=== PATIENT | male | born 1960 | race Caucasian/White ===

== ENCOUNTER 2025-03-19 03:19 | Inpatient (IN) | payer MEDICARE, OTHER ==
[~2025-03-19] VITALS: Ht 185.4 cm; Wt 74.5 kg
[2025-03-19] VITALS (11 sets, daily range): BP systolic 96–98; BP diastolic 64; PULSE 76–142; RESP 20–32; TEMP 99.7–101.5; O2SAT 95–100
[2025-03-19] MEDS ORDERED: LORazepam 2 MG/ML VIAL ONE ×2 (04:15→04:24)
[2025-03-19 04:21] LABS: BASOPHILS % (AUTO) 0.3 % (0.0-2.0); EOSINOPHILS % (AUTO) 1.6 % (1.0-6.0); HEMATOCRIT 49.6 % (41-53); HEMOGLOBIN 16.9 g/dL (13.5-17.5); LYMPHOCYTES # (AUTO) 1.6 K/uL (1.0-4.8); LYMPHOCYTES % (AUTO) 7.4 % (22.0-44.0); MEAN CORPUSCULAR HEMOGLOBIN 29.7 pg (26.0-34.0); MEAN CORPUSCULAR HGB CONC 34.1 G/dL (31.0-37.0); MEAN CORPUSCULAR VOLUME 87 fL (80-100); MONOCYTES # (AUTO) 1.3 K/uL (0.1-1.0); NEUTROPHILS # (AUTO) 18.8 K/uL (1.8-7.7); NEUTROPHILS % (AUTO) 84.7 % (40.0-70.0); PLATELET COUNT (AUTO) 238 K/uL (150-450); RED BLOOD CELL COUNT(AUTO) 5.71 MIL/uL (4.50-5.90); RED CELL DISTRIBUTION WIDTH 13.9 % (11.5-14.5); WHITE BLOOD COUNT (AUTO) 22.1 K/uL (4.5-11.0)
[2025-03-19] MEDS ORDERED: ROCURONIUM BROMIDE 10 MG/ML 5 ML VIAL ONE ×2 (04:29→12:00)
[2025-03-19] MEDS ORDERED: PROPOFOL 1000 MG/ISO-OSM 100 ML ONE (04:29)
[2025-03-19 04:32] LABS: ANION GAP 12 mmol/L (8-16); CALCIUM, TOTAL 9.6 mg/dL (8.8-10.5); CARBON DIOXIDE 22 mmol/L (22-29); CHLORIDE 92 mmol/L (98-107); CREATININE 1.24 mg/dL (0.60-1.30); GLOMERULAR FILTR. RATE CALC 58 mL/min (>60); GLUCOSE,RANDOM 156 mg/dL (70-110); POTASSIUM 3.3 mmol/L (3.5-5.1); SODIUM SERUM 126 mmol/L (136-145); UREA NITROGEN, BLOOD 20 mg/dL (7-18)
[2025-03-19 04:36] LABS: ALANINE AMINOTRANSFERASE 20 U/L (12-78); ALBUMIN 4.1 g/dL (3.4-5.0); ALKALINE PHOSPHATASE 101 U/L (46-116); ASPARTATE AMINOTRANSFERASE 36 U/L (15-37); BILIRUBIN,TOTAL 2.5 mg/dL (0.1-1.0)
[2025-03-19 04:37] LABS: AMMONIA < 10 umol/L (11-32)
[2025-03-19 04:40] LABS: ALCOHOL, BLOOD (SERUM) < 3 mg/dL (0-10)
[2025-03-19 04:42] LABS: TROPONIN I-HIGH SENSITIVITY 142 ng/L (<76)
[2025-03-19] MEDS: LevETIRAcetam 3,000 MG in DEXTROSE 5%-WATER 250 ML IV ONE (04:55)
[2025-03-19] MEDS: SODIUM CHLORIDE 0.9% 1,000 ML IV ONE (04:55)
[2025-03-19] MEDS ORDERED: SODIUM CHLORIDE 0.9% 100 ML ONE (05:07)
[2025-03-19] MEDS ORDERED: IOHEXOL 350 MG/ML 100 ML VIAL ONE (05:07)
[2025-03-19] MEDS: LORazepam 2 MG/ML VIAL IVP ONE ×2 (05:12)
[2025-03-19] MEDS: PROPOFOL 1000 MG/ISO-OSM 100 ML IV PRN (05:15)
[2025-03-19] MEDS: POTASSIUM CHLORIDE 40 MEQ in SODIUM CHLORIDE 0.9% 1,000 ML IV ONE (05:25)
[2025-03-19] MEDS: MAGNESIUM SULFATE 2 GM/WATER 50 ML IV ONE (05:40)
[2025-03-19 06:25] LABS: APPEARANCE,URINE HAZY (CLEAR); COLOR,URINE YELLOW (YELLOW); GLUCOSE, URINE (UA) NEGATIVE (NEGATIVE); KETONES,URINE 40-60 mg/dL (NEGATIVE); LEUKOCYTE ESTERASE ,URINE NEGATIVE (NEGATIVE); NITRATE,URINE NEGATIVE (NEGATIVE); OCCULT BLOOD,URINE LARGE (NEGATIVE); PROTEIN,URINE >600,SEE CONFIRM mg/dL (NEGATIVE); SPECIFIC GRAVITIY, URINE 1.032 (1.003-1.030)
[2025-03-19 06:30] LABS: BILIRUBIN,URINE SMALL (NEGATIVE)
[2025-03-19 06:35] LABS: ALCOHOL, URINE DRUG SCREEN NEGATIVE (NEGATIVE); AMPHET/METH SCREEN,URINE NEGATIVE (NEGATIVE); BARBITURATE SCREEN, URINE NEGATIVE (NEGATIVE); BENZODIAZEPINES SCREEN,URINE NEGATIVE (NEGATIVE); CANNABINOID SCREEN,URINE POSITIVE (NEGATIVE); COCAINE SCREEN,URINE NEGATIVE (NEGATIVE); METHADONE SCREEN, URINE NEGATIVE (NEGATIVE); OPIATE SCREEN,URINE NEGATIVE (NEGATIVE); PHENCYCLIDINE SCREEN,URINE NEGATIVE (NEGATIVE)
[2025-03-19] MEDS: FentaNYL CIT 1000MCG/0.9% NACL 100 ML IV PRN (06:46)
[2025-03-19] MEDS: ACETAMINOPHEN 1000 MG/ISO-OSM 100 ML IV ONE (07:00)
[2025-03-19 07:06] LABS: BACTERIA,URINE Moderate /HPF (None Seen); SULFOSALICYLIC ACID,URINE 3+ (Negative); WBC,URINE None Seen /HPF (0-5)
[2025-03-19 07:07] LABS: HYALINE CASTS, URINE 0-2 /LPF (None Seen); RENAL EPITHELIAL CELLS,URINE Rare /LPF (None Seen)
[2025-03-19 07:11] LABS: ABG BASE EXCESS -5.9 mmol/L (-2.0-3.0); ABG CARBOXYHEMOGLOBIN 0.6 % (0.5-1.5); ABG HCO3 20.3 mmol/L (21.0-28.0); ABG METHEMOGLOBIN 0.9 % (0.0-1.5); ABG OXYGEN CONTENT 22.8 mL/dL (15.0-23.0); ABG OXYGEN SATURATION 98.7 % (94.0-98.0); ABG OXYHEMOGLOBIN 97.2 % (94.0-98.0); ABG PCO2 38 mmHg (32.0-48.0); ABG TOTAL HEMOGLOBIN 16.6 G/dL (13.5-17.5); ALLEN TEST, BLOOD GAS Positive; O2 DEVICE,BLOOD GAS VENTILATOR (ROOM AIR); PO2, ARTERIAL BG 130.5 mmHg (83.0-108.0); SITE, BLOOD GAS RT RADIAL; SOURCE, BLOOD GAS ARTERIAL; TEMPERATURE, FAHRENHEIT, BG 98.8 FAHREN (96.0-98.6); VT, ABG 450 ml
[2025-03-19 07:12] LABS: PEEP,BG 5 cm H2O
[2025-03-19] MEDS: NOREPINEPHRINE 8 MG/0.9 % NACL 250 ML IV PRN (08:47)
[2025-03-19] MEDS ORDERED: ZOLPIDEM TARTRATE 5 MG TABLET PO PRN (10:15)
[2025-03-19] MEDS ORDERED: ACETAMINOPHEN 325 MG TABLET PO PRN (10:15)
[2025-03-19] MEDS ORDERED: HYDROCODONE/ACETAMINOPHEN 5-325 MG TABLET PO PRN (10:15)
[2025-03-19] MEDS ORDERED: MORPHINE SULFATE 2 MG/ML SYRINGE IVP PRN (10:15)
[2025-03-19] MEDS ORDERED: ONDANSETRON HCL 4 MG/2 ML VIAL IVP PRN (10:15)
[2025-03-19] MEDS ORDERED: LORazepam 2 MG/ML VIAL IM PRN (10:15)
[2025-03-19] MEDS ORDERED: MAGNESIUM HYDROXIDE SUSPENSION 30 ML UDCUP PO PRN (10:15)
[2025-03-19] MEDS ORDERED: BISACODYL 10 MG RECTAL RECTAL SUPPOSITORY PR PRN (10:15)
[2025-03-19] MEDS ORDERED: MAGNESIUM SULFATE 4 GM/WATER 100 ML IV PRN (10:45)
[2025-03-19] MEDS ORDERED: POTASSIUM CHLORIDE 20 MEQ ER TABLET PO PRN (10:45)
[2025-03-19] MEDS ORDERED: MAGNESIUM OXIDE 400 MG TABLET PO PRN (10:45)
[2025-03-19] MEDS ORDERED: MAGNESIUM SULFATE 2 GM/WATER 50 ML IV PRN (10:45)
[2025-03-19] MEDS: MAGNESIUM SULFATE 2 GM, MVI, ADULT NO.1 WITH VIT K 10 ML, THIAMINE 100 MG, FOLIC ACID 1... IV ONE (11:05)
[2025-03-19] MEDS: PIPERACILLIN/TAZO 3.375 GM/D5W 50 ML IV SCH (11:05)
[2025-03-19] MEDS: POTASSIUM CHL 10 MEQ/WATER 50 ML IV PRN (11:06)
[2025-03-19 11:32] LABS: ALBUMIN 4.3 g/dL (3.4-5.0)
[2025-03-19] MEDS: LevETIRAcetam 500 MG in DEXTROSE 5%-WATER 100 ML IV SCH (13:34)
[2025-03-19] MEDS: DEXMEDETOMIDINE 400 MCG/NS 100 ML IV PRN (14:27)
[2025-03-19] MEDS: ACETAMINOPHEN 500 MG/ISO-OSM 50 ML IV ONE (16:15)
[2025-03-19] MEDS: HEPARIN SODIUM,PORCINE 5,000 UNITS/ML VIAL SQ SCH (16:16)
[2025-03-19] MEDS ORDERED: GADOTERATE MEGLUMINE 10 MMOL/20 ML VIAL IVP ONE (16:27)
[2025-03-19] MEDS: DOCUSATE SODIUM 100 MG CAPSULE PO SCH (20:19)
[2025-03-20] VITALS (14 sets, daily range): BP systolic 103–131; BP diastolic 65–78; PULSE 61–87; RESP 20–27; TEMP 98.1–100.3; O2SAT 96–100
[2025-03-20 06:31] LABS: BASOPHILS % (AUTO) 0.3 % (0.0-2.0); EOSINOPHILS % (AUTO) 2.4 % (1.0-6.0); HEMATOCRIT 44.1 % (41-53); HEMOGLOBIN 14.7 g/dL (13.5-17.5); LYMPHOCYTES # (AUTO) 1.3 K/uL (1.0-4.8); LYMPHOCYTES % (AUTO) 5.6 % (22.0-44.0); MEAN CORPUSCULAR HEMOGLOBIN 29.7 pg (26.0-34.0); MEAN CORPUSCULAR HGB CONC 33.4 G/dL (31.0-37.0); MEAN CORPUSCULAR VOLUME 89 fL (80-100); MONOCYTES # (AUTO) 1.4 K/uL (0.1-1.0); MONOCYTES % (AUTO) 6.3 % (2.0-9.0); NEUTROPHILS # (AUTO) 19.3 K/uL (1.8-7.7); PLATELET COUNT (AUTO) 220 K/uL (150-450); RED BLOOD CELL COUNT(AUTO) 4.96 MIL/uL (4.50-5.90); WHITE BLOOD COUNT (AUTO) 22.5 K/uL (4.5-11.0)
[2025-03-20 06:40] LABS: ANION GAP 16 mmol/L (8-16); CALCIUM, TOTAL 8.4 mg/dL (8.8-10.5); CARBON DIOXIDE 18 mmol/L (22-29); CHLORIDE 98 mmol/L (98-107); CREATININE 1.15 mg/dL (0.60-1.30); GLOMERULAR FILTR. RATE CALC > 60 mL/min (>60); GLUCOSE,RANDOM 95 mg/dL (70-110); SODIUM SERUM 132 mmol/L (136-145); UREA NITROGEN, BLOOD 20 mg/dL (7-18)
[2025-03-20 06:46] LABS: PROTHROMBIN TIME 11.9 SEC (9.4-11.6)
[2025-03-20 06:54] LABS: NEUTROPHILS % (AUTO) 85.4 % (40.0-70.0)
[2025-03-20 07:42] LABS: TROPONIN I-HIGH SENSITIVITY 85 ng/L (<76)
[2025-03-20] MEDS: FentaNYL CIT 1000MCG/0.9% NACL 100 ML IV PRN (08:52)
[2025-03-20] MEDS: PROPOFOL 1000 MG/ISO-OSM 100 ML IV PRN (08:52)
[2025-03-20] MEDS ORDERED: PANTOPRAZOLE SODIUM 40 MG DR TABLET PO SCH (09:00)
[2025-03-20] MEDS: PANTOPRAZOLE SODIUM 40 MG/VIAL IVP SCH (11:02)
[2025-03-20] MEDS: HYDROCORTISONE SOD SUCC 100 MG/2 ML VIAL IVP SCH (12:10)
[2025-03-20 16:23] LABS: ABG BASE EXCESS -11.1 mmol/L (-2.0-3.0); ABG CARBOXYHEMOGLOBIN 0.3 % (0.5-1.5); ABG HCO3 16.9 mmol/L (21.0-28.0); ABG METHEMOGLOBIN 0.3 % (0.0-1.5); ABG OXYGEN CONTENT 20.3 mL/dL (15.0-23.0); ABG OXYHEMOGLOBIN 96.4 % (94.0-98.0); ABG PCO2 32 mmHg (32.0-48.0); ABG PH 7.298 (7.350-7.450); ABG TOTAL HEMOGLOBIN 14.9 G/dL (13.5-17.5); PO2, ARTERIAL BG 100.2 mmHg (83.0-108.0); SOURCE, BLOOD GAS ARTERIAL; TEMPERATURE, FAHRENHEIT, BG 100.3 FAHREN (96.0-98.6)
[2025-03-20 16:24] LABS: ABG A-A DIFF O2 111.4 mmHg (10-20.0); ALLEN TEST, BLOOD GAS Positive; CPAP, BG 0 cm H2O; O2 DEVICE,BLOOD GAS VENTILATOR (ROOM AIR); PRESSURE SUPPORT, BG 8 cm H2O; SITE, BLOOD GAS RT RADIAL; SPONTANEOUS VT, BG 500 ml; VENT MODE, BG CPAP (ROOM AIR)
[2025-03-20] MEDS: SODIUM BICARBONATE [ADULT] 8.4% 50 MEQ/50 ML SYRINGE IVP ONE (16:56)
[2025-03-20] MEDS: DOCUSATE SODIUM 100 MG/10 ML LIQUID UDCUP NG SCH (20:31)
[2025-03-21] VITALS (9 sets, daily range): BP systolic 89–109; BP diastolic 56–64; PULSE 48–63; RESP 14–22; TEMP 96.3–97.6; O2SAT 94–100
[2025-03-21 05:49] LABS: BASOPHILS % (AUTO) 0.2 % (0.0-2.0); EOSINOPHILS % (AUTO) 0.2 % (1.0-6.0); HEMATOCRIT 38.2 % (41-53); HEMOGLOBIN 12.9 g/dL (13.5-17.5); LYMPHOCYTES # (AUTO) 0.6 K/uL (1.0-4.8); LYMPHOCYTES % (AUTO) 5.4 % (22.0-44.0); MEAN CORPUSCULAR HEMOGLOBIN 29.8 pg (26.0-34.0); MEAN CORPUSCULAR HGB CONC 33.7 G/dL (31.0-37.0); MEAN CORPUSCULAR VOLUME 88 fL (80-100); MONOCYTES # (AUTO) 0.7 K/uL (0.1-1.0); MONOCYTES % (AUTO) 5.8 % (2.0-9.0); NEUTROPHILS # (AUTO) 10.5 K/uL (1.8-7.7); PLATELET COUNT (AUTO) 197 K/uL (150-450); RED BLOOD CELL COUNT(AUTO) 4.32 MIL/uL (4.50-5.90); RED CELL DISTRIBUTION WIDTH 14.3 % (11.5-14.5); WHITE BLOOD COUNT (AUTO) 11.8 K/uL (4.5-11.0)
[2025-03-21 05:51] LABS: ANION GAP 15 mmol/L (8-16); CALCIUM, TOTAL 8.8 mg/dL (8.8-10.5); CARBON DIOXIDE 20 mmol/L (22-29); CHLORIDE 104 mmol/L (98-107); CREATININE 1.13 mg/dL (0.60-1.30); GLOMERULAR FILTR. RATE CALC > 60 mL/min (>60); GLUCOSE,RANDOM 111 mg/dL (70-110); POTASSIUM 4.3 mmol/L (3.5-5.1); SODIUM SERUM 139 mmol/L (136-145); UREA NITROGEN, BLOOD 24 mg/dL (7-18)
[2025-03-21 06:04] LABS: NEUTROPHILS % (AUTO) 88.4 % (40.0-70.0)
[2025-03-21 07:01] LABS: RBC MORPHOLOGY COMMENT NORMAL RBC MORPH
[2025-03-21] MEDS ORDERED: SODIUM CHLORIDE 0.9% 250 ML IV ONE (07:56)
[2025-03-21] MEDS ORDERED: HEPA500018 SQ (16:10)
[2025-03-21] MEDS ORDERED: DOCU100C33 PO (16:10)
[2025-03-21] MEDS ORDERED: PANT40VI14 IVP (16:15)
[2025-03-21] MEDS ORDERED: LEVE500V8 IV (16:15)
[2025-03-21] MEDS ORDERED: PIPE3.3719 IV (16:21)
[2025-03-21] MEDS ORDERED: ACET-784 PO (16:22)
[2025-03-21] MEDS ORDERED: BISA-188 PO (16:32)
[2025-03-21] MEDS ORDERED: BISA10SU11 PR (16:33)
[2025-03-21] MEDS ORDERED: HYDR-4062 PO (16:41)
[2025-03-21] MEDS ORDERED: MAGN-169 PO (16:44)
[2025-03-21] MEDS ORDERED: LORA2I IM (16:44)
[2025-03-21] MEDS ORDERED: MORP2CAR IVP (16:50)
[2025-03-21] MEDS ORDERED: ONDA4VIA60 IVP (16:53)
[2025-03-21] MEDS ORDERED: ZOLP-280 PO (16:54)
[2025-03-21] MEDS ORDERED: HYDR100V6 IVP (16:55)
[2025-03-22 12:06] LABS: CORTISOL Baseline 26.6 ug/dL (6.2-19.4); CORTISOL STIMULATED,ACTH 60.4 ug/dL (Not Estab.)
== END 2025-03-21 13:00 | disposition short-term general hospital (02) | DRG 100 ==
LOC: EMS 03:26 → EDH 07:13 → ICU 09:37
PROVIDERS: ADMIT Internal Medicine; ATTEND Internal Medicine
PROC: 5A1945Z Respiratory Ventilation, 24-96 Consecutive Hours (ICD-10-PCS; principal; 2025-03-19)
PROC: 0BH17EZ Insertion of Endotracheal Airway into Trachea, Via Natural or Artificial Opening (ICD-10-PCS; 2025-03-19)
DX: G40.901 Epilepsy, unspecified, not intractable, with status epilepticus (principal); G92.8 Other toxic encephalopathy; J69.0 Pneumonitis due to inhalation of food and vomit; J96.01 Acute respiratory failure with hypoxia; R65.11 Systemic inflammatory response syndrome (SIRS) of non-infectious origin with acute organ dysfunction; S32.011A Stable burst fracture of first lumbar vertebra, initial encounter for closed fracture; F10.139 Alcohol abuse with withdrawal, unspecified; E87.1 Hypo-osmolality and hyponatremia; E87.6 Hypokalemia; E83.42 Hypomagnesemia; D72.829 Elevated white blood cell count, unspecified; J98.4 Other disorders of lung; K57.30 Diverticulosis of large intestine without perforation or abscess without bleeding; N40.0 Benign prostatic hyperplasia without lower urinary tract symptoms; R79.89 Other specified abnormal findings of blood chemistry; F12.90 Cannabis use, unspecified, uncomplicated; Z88.8 Allergy status to other drugs, medicaments and biological substances; Z85.820 Personal history of malignant melanoma of skin; Z79.899 Other long term (current) drug therapy; X58.XXXA Exposure to other specified factors, initial encounter; Y93.89 Activity, other specified; Y92.89 Other specified places as the place of occurrence of the external cause; Y99.8 Other external cause status
CPT/HCPCS: 36600; 70450; 70553; 71045; 71260; 72193; 74160; 80048; 80076; 80307; 81001; 81002; 82040; 82140; 82533; 82805; 83605; 83735; 84484; 85025; 85610; 85730; 87040; 87070; 87081; 87086; 87205; 93005; 94002; 94003; 95816; 96365; 96367; 96375; 99285; G0480; J0131; J0712; J1644; J1720; J2060; J2470; J2543; J2704; J3010; J3411; J3475; J3480; J3490; J7030; J7050; J7060; 36415-L1; 36415-TC